=== PATIENT | female | born 1985 | race Caucasian/White ===

== ENCOUNTER 2018-02-23 19:43 | Emergency (ER) | payer MEDICAID ==
[2018-02-23] MEDS ORDERED: Lidocaine 1% with EPINEPHrine 1:100,000 50 ML MDV SUBCUT STA (20:29)
--- NOTE | 2018-02-23 20:34 | EDM.PDOC ---
ED HPI GENERAL MEDICAL PROBLEM - General Chief Complaint: Laceration Stated Complaint: GASHED LEG Time Seen by Provider: 02/23/18 20:20 Source of Information: Reports: Patient, Old Records, RN History Limitations: Reports: No Limitations - History of Present Illness INITIAL COMMENTS - FREE TEXT/NARRATIVE: 32 yo female here after falling on stairs and lacerating the anterior L stevens area. Has been able to ambulate without issue since. Is not sure about tetanus status. No numbness or weakness distal to the wound. Here for stitches. Onset: Today Onset Date: 02/23/18 Onset Time: 19:10 Duration: Minutes:, Constant Location: Reports: Lower Extremity, Left Quality: Reports: Burning, Dull Severity: Mild Improves with: Reports: None Worsens with: Reports: None Context: Reports: Trauma Associated Symptoms: Reports: No Other Symptoms Treatments [employer] HATCH[employer] SPECIALIST: Reports: Other (see below) (none) - Related Data Allergies Allergy/AdvReac Type Severity Reaction Status Date / Time No Known Allergies Allergy Verified 02/23/18 20:01 Home Meds: Home Meds NK [No Known Home Meds] 02/23/18 [History] Past Medical History Musculoskeletal History: Reports: Other (See Below) Other Musculoskeletal History: spur - Past Surgical History HEENT Surgical History: Reports: Adenoidectomy, Myringotomy w Tube(s), Tonsillectomy Social & Family History - Tobacco Use Smoking Status *Q: Never Smoker ED ROS GENERAL - Review of Systems Review Of Systems: Unable To Obtain HEENT: Reports: No Symptoms Skin: Reports: Wound (L anterior leg laceration.). Denies: Bruising, Rash Neurological: Reports: No Symptoms ED EXAM, SKIN/RASH Exam: See Below Exam Limited By: No Limitations General Appearance: Alert, WD/WN, No Apparent Distress Eye Exam: Bilateral Eye: Normal Inspection Nose: No Blood Head: Atraumatic, Normocephalic Neck: Normal Inspection, Supple, Non-Tender Respiratory/Chest: No Respiratory Distress Extremities: Normal Inspection, Normal Range of Motion, Non-Tender, No Pedal Edema Neurological: Alert, Oriented, CN II-XII Intact, Normal Cognition, No Motor/ Sensory Deficits Psychiatric: Normal Affect, Normal Mood Skin: Warm, Dry, Normal Color, No Rash, Wound/Incision (7 cm V-shaped horizontal full thickness laceration of the anterior L stevens area. No active bleeding. ) Location, Skin: Lower Extremity, Left Characteristics: Linear Associated features: Tenderness. No: Warmth, Swelling, Induration ED SKIN PROCEDURES - Laceration/Wound Repair Left Middle Anterior Leg Lac/Wound length In cm: 5 Appearance: Subcutaneous, Clean Distal NVT: Neuro & Vascular Intact, No Tendon Injury Anesthetic Type: Local Local Anesthesia - Lidocaine (Xylocaine): 1% with EPI Local Anesthetic Volume: Other (10 ml) Skin Prep: Saline Exploration/Debridement/Repair: Wound Explored, No Foreign Material Found Closed with: Sutures Suture Size: other (5-0) # of Sutures: 9 Suture Type: Nylon, Interrupted, Simple, Mattress Drain Placement: No Sterile Dressing Applied: Nurse Tetanus Status Addressed: Other (declined tetanus, last received in ') Complications: No Course - Vital Signs Last Recorded V/S: Last Vital Signs Temp 36.0 C 02/23/18 20:08 Pulse 81 02/23/18 20:08 Resp 14 02/23/18 20:08 BP 120/83 02/23/18 20:08 Pulse Ox 98 02/23/18 20:08 - Orders/Labs/Meds Meds: Medications Discontinued Medications Generic Name Dose Route Start Last Admin Trade Name Philq PRN Reason Stop Dose Admin Lidocaine/Epinephrine 10 ml 02/23/18 20:29 02/23/18 20:37 Xylocaine 1% With Epinephrine 1:100,000 SUBCUT 02/23/18 20:30 10 ml NOW STA Administration Departure - Departure Time of Disposition: 21:10 Disposition: Home, Self-Care 01 Condition: Good Clinical Impression: Leg laceration Qualifiers: Encounter type: initial encounter Laterality: left Qualified Code(s): S81.812A - Laceration without foreign body, left lower leg, initial encounter - Discharge Information *PRESCRIPTION DRUG MONITORING PROGRAM REVIEWED*: No *COPY OF PRESCRIPTION DRUG MONITORING REPORT IN PATIENT CATHERINE: No Instructions: Laceration Care, Adult Referrals: PCP,None [Primary Care Provider] - Forms: ED Department Discharge Additional Instructions: Clean wound twice daily with soap and water. Dry. Apply antibiotic ointment and a new dressing. Stitches out in the clinic in 10 days. Recheck sooner for signs of infection. Take acetaminophen as needed for pain relief.
[2018-02-23] MEDS ORDERED: Diphtheria,Pertussis(Acell),Tetanus Vaccine 0.5 ML SDV IM ONE (20:58)
[2018-02-23] MEDS ORDERED: Bacitracin Oint 1 GM U/D Packet TOP ONE (20:58)
== END 2018-02-23 21:15 | disposition home or self-care (01) ==
LOC: JP.ED 19:43
DX: S81.812A Laceration without foreign body, left lower leg, initial encounter (principal); W10.9XXA Fall (on) (from) unspecified stairs and steps, initial encounter
CPT/HCPCS: 12002; 90471; 99283-25